=== PATIENT | male | born 1945 | race Caucasian/White ===

== ENCOUNTER → 2020-07-24 | Outpatient (CLI) | payer MEDICARE, OTHER, SELFPAY ==
[2017-11-17 08:19] VITALS: BMI 29.9
== END | disposition home or self-care (01) ==
LOC: LABSPEC 14:54
PROVIDERS: PCP Family Medicine; Referring Provider Internal Medicine; Visit Provider Internal Medicine
DX: U07.1 COVID-19 (principal)
CPT/HCPCS: 87635; U0003

== ENCOUNTER 2020-07-26 11:02 | Emergency (ER) | payer MEDICARE, OTHER, SELFPAY ==
[2020-07-26 11:03] VITALS: BP 158/83; PULSE 88; RESP 17; TEMP 37; O2SAT 95; BMI 28.5
[2020-07-26 11:06] VITALS: BP 158/83; PULSE 88; RESP 17; TEMP 37; O2SAT 94
--- NOTE | 2020-07-26 11:17 | ED.DCSUM_ITS ---
History of Present Illness Chief Complaint: Cough Informant: Patient Onset: Days Context: Gradual Onset Current Severity: Mild Maximum Severity: Mild Narrative: Patient presents secondary to concern about low oxygen level. He was seen on a telephone visit by his doctor on the . His had been tested for Covid the day before but has not yet received her test results. He had a mild cough and thought maybe he should be tested as well. Swab was collected on the afternoon of the the patient does not yet have test results back. Patient's [id number] brought a pulse ox meter to his home this morning and because his oxygen level was only reading 90% PCP requested he come to the emergency room. Patient denies shortness of breath. He denies fever or chills. He denies loss of smell or taste. - Past Medical History (1) Glaucoma Status: Chronic Past Medical History - Allergies and Home Meds Allergies/Adverse Reactions: Allergies No Known Allergies Allergy (Unverified 07/26/20 11:03) Primary Care Physician: Rudy Ward DO [Primary Care Provider] - Prior records reviewed: Yes Lives: Spouse/ Significant Other Smoking Status: Never smoker Review of Systems General: Denies: Chills, Fever Eyes: Denies: Visual changes - bilaterally ENT: Denies: Bilateral ear pain Cardiovascular: Denies: Chest pain Respiratory: Reports: Cough. Denies: Dyspnea, Sputum Gastrointestinal: Denies: Abdominal pain, Nausea, Vomiting, Diarrhea Genitourinary: Denies: Dysuria Musculoskeletal: Denies: Swelling, Extremity Pain Skin: Denies: Rash Hematologic: Denies: Easy bruising, Easy bleeding Allergy: Denies: Uticaria Physical Exam Vital Signs/Narrative: Vital Signs Temp Pulse Resp BP Pulse Ox 07/26/20 11:03 98.6 F 88 17 158/83 H 95 Inital Vital Signs reviewed: Yes General: Well nourished, Well developed Head: Normocephalic ENT: Moist mucous membranes Neck: Supple Cardiovascular: Regular rate, Regular rhythm Respiratory: No distress, CTA bilaterally Abdomen: Soft, Nontender, Normal bowel sounds Extremities: Nontender Skin: Normal color, No rash Neurological: Alert, Oriented x3 Psychological: Normal affect Diagnostic/Tx/Re-eval Chest X-Ray - ED: 1 View, Read by ED Physician, Right Infiltrate Impressions Chest X-Ray 07/26/20 11:44 IMPRESSION: Right upper lobe pneumonia. Electronically Signed: Jonathon Lazaro MD at 12:00 EST Tel , Service support , 07/26/20 11:44 Chest 1 View (Portable) [RAD] Stat 07/26/20 11:35 Mucosa - Nose SARS-CoV-2 Antigen (Rapid) - Final SARS-CoV-2 (COVID 19) - Medical Decision Making Patient's chest x-ray per my interpretation does reveal mild right upper lobe infiltrate. Radiologist interpretation is reviewed and agrees. Rapid Covid test does return positive. Patient is currently on day 4 of symptoms. While sitting at rest patient's O2 sat is 92% on room air. With deep breathing he is 95 to 96%. At this time I do think he would be a good candidate for monoclonal antibodies. This was discussed with him and he is interested in talking with them as far as getting more information and deciding if he would like to go t hrough with his treatment. Ambulatory order and phone message have been left for them to contact him. Patient was given return instructions. He does have a pulse ox at home that he will continue to monitor his pulse ox. ED Disposition - Plan for ED Patient: Disposition: Home or Assisted Living Diagnosis: COVID-19, Pneumonia due to COVID-19 virus Instructions: Coronavirus Disease 2019 (COVID-19): Overview, Coronavirus Disease 2019 (COVID-19): Prevention, Coronavirus Disease 2019 (COVID-19): Caring for Yourself or Others, ED - COVID Monoclonal AB Infusion ... Referrals: Rudy Ward DO [Primary Care Provider] -
[2020-07-26 11:40] VITALS: O2SAT 95
--- NOTE | 2020-07-26 11:44 | RAD_ITS ---
STUDY: X-RAY CHEST REASON FOR EXAM: Male, 74 years old. low O2 at home. no other chest complaints. TECHNIQUE: Single AP portable view of the chest. COMPARISON: None. FINDINGS: Focal alveolar opacity in the upper right lung consistent with right upper lobe pneumonia. There is no demonstrated pleural abnormality. Normal size heart. Normal mediastinum and amanuel. Normal visualized pulmonary arteries. Normal visualized aortic arch and descending thoracic aorta. Normal visualized thoracic spine. Normal visualized ribs, clavicles, and shoulders. There is no demonstrated abnormality of the visualized soft tissue structures of the upper abdomen. RAD/Chest 1 View (Portable) IMPRESSION: Right upper lobe pneumonia. Electronically Signed: Jonathon Lazaro MD at 12:00 EST Tel , Service support ,
[2020-07-26 12:39] VITALS: PULSE 88; RESP 16; O2SAT 97
== END 2020-07-26 12:40 | disposition home or self-care (01) ==
LOC: ED 12:29
PROVIDERS: Emergency Provider Emergency Medicine; PCP Family Medicine
DX: U07.1 COVID-19 (principal); J12.82 Pneumonia due to coronavirus disease 2019
CPT/HCPCS: 71045; 87426; 99282

== ENCOUNTER 2020-07-28 12:11 | Outpatient (CLI) | payer MEDICARE, OTHER, SELFPAY ==
[2020-07-28 12:28] VITALS: BP 142/63; PULSE 79; RESP 20; TEMP 37.3; BMI 27.3
[2020-07-28 12:50] VITALS: BP 143/56; PULSE 84; RESP 20; TEMP 37.1; O2SAT 99
[2020-07-28 13:18] VITALS: BP 138/58; PULSE 82; RESP 20; TEMP 37.5; O2SAT 95
[2020-07-28 13:50] VITALS: BP 140/62; PULSE 83; RESP 22; TEMP 36.8; O2SAT 95
[2020-07-28 14:20] VITALS: BP 137/64; PULSE 84; RESP 22; TEMP 37.1; O2SAT 95
[2020-07-28 14:53] VITALS: BP 132/58; PULSE 84; RESP 22; TEMP 37.7; O2SAT 94
== END 2020-07-28 14:54 | disposition home or self-care (01) ==
LOC: MS2OUT 12:13
PROVIDERS: PCP Family Medicine; Referring Provider Nurse Practitioner Acute Care; Visit Provider Nurse Practitioner Acute Care
DX: U07.1 COVID-19 (principal)
CPT/HCPCS: 96365; J7050; M0239; Q0239

== ENCOUNTER → 2021-05-19 09:03 | Outpatient (CLI) | payer MEDICARE, OTHER, SELFPAY ==
[2021-05-19 12:29] LABS: Anion Gap 8 (5-15); BUN 15 mg/dL (7-18); BUN/Creat Ratio 12.1 RATIO (10-20); Chloride 105 mmol/L (98-107); Cholesterol 229 mg/dL (200); Creatinine, Serum 1.24 mg/dL (0.70-1.30); EST Glomerular Filtration Rate 61 mL/min (>60); Est Glom Filt Rate - Afr Amer 73 mL/min (>60); Glucose 86 mg/dL (74-106); High Density Lipoprotein 45 mg/dL; Potassium 4.5 mmol/L (3.5-5.1); Sodium Level 142 mmol/L (136-145); Triglycerides 134 mg/dL; Very Low Density Lipoprotein 27 mg/dL (5-40)
== END ==
PROVIDERS: PCP Family Medicine; Referring Provider Family Medicine; Visit Provider Family Medicine
DX: Z00.00 Encounter for general adult medical examination without abnormal findings (principal); Z13.6 Encounter for screening for cardiovascular disorders
CPT/HCPCS: 36415; 80048; 80061

== ENCOUNTER → 2022-05-12 | Outpatient (CLI) | payer MEDICARE, OTHER, SELFPAY ==
[2022-05-12 15:43] LABS: ALB/GLOB Ratio 1.1 RATIO (0.9-2.4); AST(SGOT) 33 U/L (15-37); Alanine Aminotransfer ALT/SGPT 55 U/L (16-61); Alkaline Phosphatase 88 U/L (45-117); Anion Gap 5 (5-15); BUN 14 mg/dL (7-18); Calcium,Total 9.2 mg/dL (8.5-10.1); Chloride 107 mmol/L (98-107); Cholesterol 131 mg/dL (200); Creatinine, Serum 1.08 mg/dL (0.70-1.30); EST Glomerular Filtration Rate 71 mL/min (>60); Est Glom Filt Rate - Afr Amer 86 mL/min (>60); Globulin 3.5 g/dL (2.2-4.2); Glucose 128 mg/dL (74-106); High Density Lipoprotein 38 mg/dL; Protein, Total 7.5 g/dL (6.4-8.2); Sodium Level 140 mmol/L (136-145); Triglycerides 156 mg/dL; Very Low Density Lipoprotein 31 mg/dL (5-40)
== END | disposition home or self-care (01) ==
LOC: BIMLAB 13:24
PROVIDERS: PCP Family Medicine; Referring Provider Family Medicine; Visit Provider Family Medicine
DX: E78.5 Hyperlipidemia, unspecified (principal)
CPT/HCPCS: 36415; 80053; 80061

== ENCOUNTER → 2023-08-02 | Outpatient (CLI) | payer MEDICARE, OTHER, SELFPAY ==
--- OUTSIDE RECORDS SUMMARY | 2023-08-02 16:25 | XMS RPT_ITS | CCD ---
Author Name Unknown Address [address] [place] [address] Organization [facility] Care Team Providers Care Entry Processor Name Role Phone Frangiamore, Michael Unavailable Unavailab le PROVIDER, UNKNOWN Unavailable Unavailable Brown, Rudy Unavailable Unavailable Frangiamore, Michael Unavailable Unavailab le PROVIDER, UNKNOWN Unavailable Unavailable Brown, Rudy Unavailable Unavailable DUSTY ORTEGA Unavailable Unavailable OLIVER LACY Unavailable Unavailable Frangiamore, Michael Unavailable Unavailab le PROVIDER, UNKNOWN Unavailable Unavailable Brown, Rudy Unavailable Unavailable Frangiamore, Michael Unavailable Unavailab le PROVIDER, UNKNOWN Unavailable Unavailable Brown, Rudy Unavailable Unavailable Frangiamore, Michael Unavailable Unavailab le PROVIDER, UNKNOWN Unavailable Unavailable Brown, Rudy Unavailable Unavailable Frangiamore, Michael Unavailable Unavailab le PROVIDER, UNKNOWN Unavailable Unavailable Brown, Rudy Unavailable Unavailable Problems Active Problems Problem Classification Problem Date Documented Da te Episodic/Chronic Cataract (2 sources) Other specified cataract; Translations: [Other specified cataract] Onset: 11-24-2017 Chronic Osteoarthritis (2 sources) Primary osteoarthritis, right shoulder; Translations: [Primary osteoarthritis, right shoulder] Onset: 04-21-2017 Chronic Other nutritional; endocrine; and metabolic disorders (2 sources) Overweight; Translations: [Overweight] Onset: 12-01-2017 Chronic Past or Other Problems Problem Classification Problem Date Documented Da te Episodic/Chronic Other bone disease and musculoskeletal deformities (2 sources) Chondromalacia, right shoulder; Translations: [Chondromalacia, right shoulder] Onset: 12-01-2017 Episodic Other connective tissue disease (6 sources) Other shoulder lesions, right shoulder; Translations: [Bicipital tendinitis, right shoulder] Onset: 04-21-2017 Episodic Other connective tissue disease (2 sources) Complete rotator cuff tear or rupture of right shoulder, not specified as traumatic; Translations: [Complete rotatr-cuff tear/ruptr of r shoulder, not trauma] Onset: 12-01-2017 Episodic Other connective tissue disease (2 sources) Impingement syndrome of right shoulder; Translations: [Impingement syndrome of right shoulder] Onset: 12-01-2017 Episodic Other connective tissue disease (2 sources) Bicipital tendinitis, right shoulder; Translations: [Bicipital tendinitis, right shoulder] Onset: 12-01-2017 Episodic Other non-traumatic joint disorders (2 sources) Pain in right shoulder; Translations: [Pain in right shoulder] Onset: 04-13-2017 Episodic Screening or history of mental health and substance abuse (2 sources) Personal history of nicotine dependence; Translations: [Personal history of nicotine dependence] Onset: 12-01-2017 Episodic Sprains and strains (2 sources) Other sprain of right shoulder joint, initial encounter; Translations: [Other sprain of right shoulder joint, initial encounter] Onset: 04-21-2017 Episodic Unclassified (2 sources) Body mass index (BMI) 28.0-28.9, adult; Translations: [Body mass index (BMI) 28.0-28.9, adult] Onset: 12-01-2017 Episodic Results Test Name Value Interpretation Reference Range Facil ity Encounters Encounter Date Encounter Type Care Provider Facility Start: 04-06-2018 Patient encounter Michael [facility] Start: 12-01-2017 Patient encounter Michael [facility] Start: 11-24-2017 Encounter for other preprocedural examination Michael Paredeswycar[facility] Start: 11-24-2017 Patient encounter Michael Hamilton [facility] Start: 07-29-2017 Patient encounter Michael Hamilton [facility] Start: 05-27-2017 End: 05-27-2017 Ambulatory DUSTY ORTEGA [facility]: [facility] for other preprocedural examination Michael Cabe[facility]as [facility] Payers Date Payer Category Payer Medicare [id number] 1999 Medicare Summary Purpose Family History No Family History Records FoundNo Family History Records FoundNo Family History Records FoundNo Family History Records Found Advance Directives No Advanced Directives Records FoundNo Advanced Directives Records FoundNo Advanced Directives Records FoundNo Advanced Directives Records Found Additional Source Comments (unrecognized sect ion and content) No Status Records FoundNo Status Records FoundNo Status Records FoundNo Status Records Found INFORMATION SOURCE (unrecogn ized section and content) DATE CREATED AUTHOR AUTHOR'S ORGANIZ ATION 01/17/2018 [facility] ([place]) DATE CREATED AUTHOR AUTHOR'S ORGANIZ ATION 01/18/2018 [facility] [employer] DATE CREATED AUTHOR AUTHOR'S ORGANIZ ATION 05/02/2018 [facility] [employer] FOR RECORDS PERTAINING TO PATIENTS WHO ARE OR HAVE BEEN ENROLLED IN A CHEMICAL DEPENDENCY/SUBSTANCEABUSE PROGRAM, SOME INFORMATION MAY BE OMITTED. This clinical summary was aggregated from multiple sources. Caution should be exercised in using it in the provision of clinical care. This summary normalizes information from multiple sources, and as a consequence, information in this document may materially change the coding, format and clinical context of patient data. In addition, data may be omitted in some cases. CLINICAL DECISIONS SHOULD BE BASED ON THE PRIMARY CLINICAL RECORDS. [employer] [facility]. provides no warranty or guarantee of the accuracy or completeness of information in this document.
[2023-08-02 17:03] LABS: ALB/GLOB Ratio 1.1 RATIO (0.9-2.4); AST(SGOT) 39 U/L (15-37); Alanine Aminotransfer ALT/SGPT 57 U/L (16-61); Albumin, Serum 3.9 g/dL (3.2-5.0); Alkaline Phosphatase 94 U/L (45-117); Anion Gap 3 (5-15); BUN 20 mg/dL (7-18); BUN/Creat Ratio 16.7 RATIO (10-20); Calcium,Total 9.4 mg/dL (8.5-10.1); Chloride 110 mmol/L (98-107); Cholesterol 197 mg/dL (200); EST Glomerular Filtration Rate 63 mL/min (>60); Est Glom Filt Rate - Afr Amer 76 mL/min (>60); Globulin 3.6 g/dL (2.2-4.2); Glucose 109 mg/dL (74-106); High Density Lipoprotein 37 mg/dL; Potassium 4.6 mmol/L (3.5-5.1); Protein, Total 7.5 g/dL (6.4-8.2); Sodium Level 142 mmol/L (136-145); Triglycerides 332 mg/dL; Very Low Density Lipoprotein 66 mg/dL (5-40)
== END | disposition home or self-care (01) ==
LOC: BIMLAB 14:50
PROVIDERS: PCP Family Medicine; Referring Provider Family Medicine; Visit Provider Family Medicine
DX: E78.5 Hyperlipidemia, unspecified (principal)
CPT/HCPCS: 36415; 80053; 80061

== ENCOUNTER → 2024-09-11 | Outpatient (CLI) | payer MEDICARE, OTHER, SELFPAY ==
[2024-09-11 12:50] LABS: Absolute Lymphocyte Count 1.23 X10^3/uL (0.83-4.51); Absolute Neutrophil Count 3.1 X10^3/uL (2.0-7.7); Basophil# 0.04 X10^3/uL; Basophil% 0.8 % (0-1); Eosinophil# 0.28 X10^3/uL; Eosinophils% 5.4 % (0-5); Hematocrit 47.8 % (40-54); Hemoglobin 15.5 g/dL (13.0-16.5); Lymphocyte # 1.23 X10^3/ul (0.83-4.51); Lymphocyte % 23.9 % (19-41); Mean Corp Hgb Conc 32.4 g/dL (32-36); Mean Corpuscular Volume 98.8 fL (80-94); Mean Platelet Vol. 10.6 fl (6.2-12.0); Monocyte# 0.46 X10^3/uL; Monocyte% 8.9 % (0-10); NRBC Flagged by Analyzer 0 % (0-5); Neutrophil # 3.12 X10^3/uL (2.7-7.7); Neutrophil % 60.8 % (47-70); Platelet Count 202 K/mm3 (150-450); RBC Distribution Width CV 12.8 % (11.6-14.6); RBC Distribution Width SD 46.6 fl (35.1-43.9); Red Blood Count 4.84 M/mm3 (4.6-6.2); White Blood Count 5.1 K/mm3 (4.4-11.0)
[2024-09-11 13:35] LABS: AST(SGOT) 34 U/L (15-37); Alanine Aminotransfer ALT/SGPT 66 U/L (16-61); Albumin, Serum 3.8 g/dL (3.2-5.0); Alkaline Phosphatase 82 U/L (45-117); Anion Gap 2 (5-15); BUN 18 mg/dL (7-18); BUN/Creat Ratio 14.1 RATIO (10-20); Calcium,Total 9.7 mg/dL (8.5-10.1); Chloride 111 mmol/L (98-107); Cholesterol 115 mg/dL (200); Creatinine, Serum 1.28 mg/dL (0.70-1.30); EST Glomerular Filtration Rate 58 mL/min (>60); Est Glom Filt Rate - Afr Amer 70 mL/min (>60); Globulin 3.8 g/dL (2.2-4.2); Glucose 95 mg/dL (74-106); High Density Lipoprotein 41 mg/dL; Potassium 5.1 mmol/L (3.5-5.1); Protein, Total 7.6 g/dL (6.4-8.2); Sodium Level 144 mmol/L (136-145); Triglycerides 77 mg/dL; Very Low Density Lipoprotein 15 mg/dL (5-40)
== END | disposition home or self-care (01) ==
LOC: BIMLAB 09:02
PROVIDERS: PCP Family Medicine; Referring Provider Family Medicine; Visit Provider Family Medicine
DX: Z00.00 Encounter for general adult medical examination without abnormal findings (principal); E78.5 Hyperlipidemia, unspecified
CPT/HCPCS: 36415; 80053; 80061; 85025